=== PATIENT | female | born 1995 | race African-American/Black ===

== ENCOUNTER 2017-03-12 20:43 | Emergency (ER) | payer MEDICAID ==
[~2017-03-12] VITALS: Ht 157.5 cm; Wt 82.0 kg
[2017-03-12 21:35] VITALS: BP 110/69
[2017-03-12] MEDS ORDERED: KETOROLAC 60MG/2ML VIAL IM STA (22:32)
[2017-03-12 22:56] LABS: BASOPHILS % 0.6 % (0.0-2.0); EOSINOPHILS % 3.9 % (0.0-5.0); HEMATOCRIT. 37.2 % (36.0-48.0); HEMOGLOBIN. 11.8 g/dL (12.0-16.0); LYMPHOCYTES % 24.8 % (20.0-50.0); MEAN CORPUSCULAR HEMOGLOBIN 23.6 pg (28.0-32.0); MEAN CORPUSCULAR VOLUME 74.3 fL (81.0-99.0); MEAN PLATELET VOLUME 9.4 fl (7.4-10.4); MONOCYTES % 11.5 % (2.0-8.0); NEUTROPHILS % 59.2 % (40.0-76.0); PLATELET 218 x1000/uL (130-400); RED BLOOD CELL COUNT 5.01 mill/uL (4.2-5.4); RED CELL DISTRIBUTION WIDTH 15.8 % (11.6-14.6)
[2017-03-12 23:02] LABS: CHLORIDE 105 mEq/L (98-107)
[2017-03-12 23:07] LABS: CARBON DIOXIDE 29 mEq/L (21-32)
[2017-03-12 23:13] LABS: CLARITY URINE CLEAR (CLEAR); COLOR URINE YELLOW (YELLOW); GLUCOSE URINE NEGATIVE (NEGATIVE); KETONES URINE TRACE (NEGATIVE); LEUKOCYTE ESTERASE URINE NEGATIVE (NEGATIVE); NITRITE URINE NEGATIVE (NEGATIVE); OCCULT BLOOD URINE NEGATIVE (NEGATIVE); PH URINE 6.5 (4.5-8.0); PROTEIN URINE TRACE (NEGATIVE); SPECIFIC GRAVITY URINE 1.042 (1.005-1.030)
== END 2017-03-13 00:08 | disposition home or self-care (01) ==
LOC: ER 22:44
DX: R51 Headache (principal); M54.5 Low back pain
CPT/HCPCS: 36415; 80053; 81001; 81025; 85025; 96372; 99284; J1885